=== PATIENT | female | born 1975 | race Caucasian/White ===

== ENCOUNTER 2021-11-01 21:20 | Emergency (ER) | payer BC ==
[~2021-11-01] VITALS: Ht 167.6 cm; Wt 79.4 kg
[2021-11-01] MEDS ORDERED: CASIRIVIMAB/IMDEVIMAB 10 ML in SODIUM CHLORIDE 0.9% 100 ML IV ONE (21:30)
[2021-11-01] MEDS ORDERED: SODIUM CHLORIDE 0.9% 100 ML ONE (21:35)
[2021-11-01 22:15] VITALS: BP 122/69
== END 2021-11-01 22:30 | disposition home or self-care (01) ==
LOC: ER 21:43
DX: U07.1 COVID-19 (principal); R05.9 Cough, unspecified; R53.81 Other malaise
CPT/HCPCS: 99283; J7050